=== PATIENT | female | born 1965 | race Caucasian/White ===

== ENCOUNTER 2021-10-17 10:06 | Emergency (ER) | payer MEDICARE, BC ==
[~2021-10-17] VITALS: Ht 165.1 cm; Wt 69.9 kg
[~2021-10-17 10:06] MED LIST: AMLODIPINE BESYL5 MG PO; METOPROLOL SUC100 MG PO; OMEPRAZOLE20 MG PO; RENA-VITE RX T1 EACH PO; SODIUM BICARBO650 MG PO; SYMBICORT 80-10.2 GM INH; TYLENOL WITH C1 EACH PO; VENTOLIN HFA18 GM INH
[2021-10-17] MEDS ORDERED: CEPHALEXIN500 MG PO (11:54)
[2021-10-17] MEDS ORDERED: TACROLIMUS1 MG PO (11:55)
[2021-10-17] MEDS ORDERED: CARVEDILOL3.125 MG PO (11:56)
[2021-10-17] MEDS ORDERED: NIFEDIPINE ER30 MG PO (11:56)
[2021-10-17] MEDS ORDERED: PREDNISONE5 MG PO (11:56)
[2021-10-17] MEDS ORDERED: CELLCEPT500 MG PO (11:57)
== END 2021-10-17 15:54 | disposition short-term general hospital (02) ==
LOC: ED 10:06
DX: M65.9 Synovitis and tenosynovitis, unspecified (principal); Z88.5 Allergy status to narcotic agent; Z88.8 Allergy status to other drugs, medicaments and biological substances; Z79.899 Other long term (current) drug therapy; Z79.52 Long term (current) use of systemic steroids; Z20.822 Contact with and (suspected) exposure to COVID-19
CPT/HCPCS: 36415; 73140; 80048; 85025; 86140; 99284-25; C9803; U0003

== ENCOUNTER 2022-05-31 10:42 | Emergency (ER) | payer MEDICARE, BC ==
[~2022-05-31] VITALS: Ht 165.1 cm; Wt 84.7 kg
[~2022-05-31 10:42] MED LIST changes: +CARVEDILOL3.125 MG PO; +CELLCEPT500 MG PO; +CEPHALEXIN500 MG PO; +NIFEDIPINE ER30 MG PO; +PREDNISONE5 MG PO; +TACROLIMUS1 MG PO
[2022-05-31] MEDS ORDERED: AZATHIOPRINE50 MG PO (11:58)
[2022-05-31] MEDS ORDERED: ONDANSETRON HCL4 MG PO (11:58)
[2022-05-31] MEDS ORDERED: MAGNESIUM OXID400 M1 PO (11:59)
[2022-05-31] MEDS ORDERED: CYCLOSPORINE25 MG PO (12:03)
[2022-05-31] MEDS ORDERED: CIPRO250 MG PO (15:55)
== END 2022-05-31 16:40 | disposition home or self-care (01) ==
LOC: ED 10:42
DX: N39.0 Urinary tract infection, site not specified (principal); Z20.822 Contact with and (suspected) exposure to COVID-19; Z88.5 Allergy status to narcotic agent; Z88.8 Allergy status to other drugs, medicaments and biological substances; Z91.048 Other nonmedicinal substance allergy status; Z79.52 Long term (current) use of systemic steroids
CPT/HCPCS: 36415; 71045; 80048; 81001; 85025; 87088; 87186; 87502; 99283-25; C9803; J7030; U0003

== ENCOUNTER 2024-09-15 12:37 | Observation (INO) | payer BC ==
[~2024-09-15] VITALS: Ht 165.1 cm; Wt 95.3 kg
[~2024-09-15 12:37] MED LIST changes: +AZATHIOPRINE50 MG PO; +CIPRO250 MG PO; +CYCLOSPORINE25 MG PO; +MAGNESIUM OXID400 M1 PO; +ONDANSETRON HCL4 MG PO
[2024-09-15] MEDS ORDERED: CINACALCET HCL30 MG PO (12:50)
[2024-09-15] MEDS ORDERED: SODIUM CHLORIDE 0.9% 1,000 ML IV ONE (13:00)
[2024-09-15 13:05] LABS: PH, VENOUS 7.455 (7.31-7.41)
[2024-09-15 13:10] LABS: BASOPHILS 0.2 % (0-2); EOSINOPHILS 0.3 % (0-6); HEMATOCRIT 37.1 % (35.0-50.0); HEMOGLOBIN 12.5 g/dL (12.0-18.0); LYMPHOCYTES 5.3 % (24-44); MCH 31.3 (27-36); MCHC 33.6 g/dl (30-36); MCV 93.2 fl (81-99); MONOCYTES 6.7 % (0-12); NEUTROPHILS 87.5 % (39-80); PLATELET COUNT 183 K/uL (140-440); RBC 3.97 M/ul (4.3-5.7); RDW 15.1 (10.5-15.0)
[2024-09-15 13:21] LABS: ALBUMIN/GLOBULIN RATIO 0.67 (1.1-2.4); ANION GAP 17.5 (7-21); BILIRUBIN, TOTAL 2.1 ng/dL (0.2-1.0); BUN/CREATININE RATIO 14.28 (6.0-28.6); CALCIUM 9.6 mg/dL (8.5-10.1); CREATININE, SERUM 1.47 mg/dL (0.55-1.02); POTASSIUM 4.5 mmol/L (3.5-5.1); PROTEIN, TOTAL 7.5 g/dL (6.4-8.2)
--- NOTE | 2024-09-15 13:39 | EKG ---
[facility] [address] [place], [place] [address] Signed Normal sinus rhythm Normal ECG When compared with ECG of 23-APR-2016 14:32, No significant change was found Confirmed by Farzad Rivera MD ([id number]) on 09/15/2024 1:38:52 PM Electronically Signed By: FARZAD RIVERA MD 09/15/24 1339 PATIENT NAME: REGINE GRANGER [place] Electrocardiogram DATE OF : 65 PHYSICIAN: FARZAD RIVERA MD REPORT #: [id number] REPORT IS CONFIDENTIAL AND NOT TO BE RELEASED WITHOUT AUTHORIZATION
[2024-09-15] MEDS ORDERED: SODIUM CHLORIDE 0.9% 1,000 ML IV PRN (14:45)
[2024-09-15] MEDS ORDERED: Insulin Regular, Human 100 UNIT/ML ML IV ONE (14:45)
[2024-09-15] MEDS ORDERED: GLUCAGON,HUMAN RECOMBINANT 1 MG/ML VIAL SUB-Q PRN (16:00)
[2024-09-15] MEDS ORDERED: DEXTROSE 5% 1,000 ML IV PRN (16:00)
[2024-09-15] MEDS ORDERED: ondansetron HCL 4 MG/2 ML VIAL IV PRN (16:00)
[2024-09-15] MEDS ORDERED: IBLOOD GLUCOSE TEST STRIP 1 EA TEST XX PRN (16:00)
[2024-09-15] MEDS ORDERED: DEXTROSE 50% 50 ML SYR IV PRN ×2 (16:00)
[2024-09-15] MEDS ORDERED: LACTATED RINGER'S 1,000 ML IV SCH (16:00)
[2024-09-15] MEDS ORDERED: ACETAMINOPHEN 325 MG TAB PO PRN (16:00)
[2024-09-15] MEDS ORDERED: IBLOOD GLUCOSE TEST STRIP 1 EA TEST VI SCH (17:00)
[2024-09-15] MEDS ORDERED: INSULIN LISPRO 100 UNIT/ML ML SUB-Q SCH (17:00)
--- NOTE | 2024-09-15 17:10 | NUR ---
PATIENT ARRIVED TO THE FLOOR. REPORT RECEIVED FROM YANELI BAUTISTA FROM THE ER. PATIENT THEN PIVOT TRANSFERRED TO THE BED INDEPENDENTLY.
[2024-09-15 17:14] VITALS: BP 149/55
--- NOTE | 2024-09-15 17:20 | NUR ---
PATIENT SPEAKING WITH REAL ESTATE SALES AGENT AND POWER SEWING MACHINE OPERATOR AT THIS TIME.
[2024-09-15 18:07] VITALS: BP 149/55
--- NOTE | 2024-09-15 18:08 | NUR ---
DR THAO NOTIFIED OF PT'S BLOOD GLUCOSE OF 407. DR THAO STATED TO GIVE INSULIN PER S/S ORDERED.
--- NOTE | 2024-09-15 18:10 | NUR ---
PATIENT IS SITTING UPRIGHT IN BED AND EATING DINNER. PATIENT WITH HER AT BEDSIDE. ADMISSION COMPLETE. FULL ASSESSMENT COMPLETE AND DOCUMENTED IN THE CHART. PATIENT IS ALERT AND ORIENTED TIMES FOUR. PATIENT WITH A MURMUR HEARD ON AUSCULTATION. RADIAL AND PEDAL PULSES ARE STRONG BILATERALLY. CAPILLARY REFILL IN THE UPPER AND LOWER EXTREMITIES IS LESS THAN 3 SECONDS BILATERALLY. SENSATION INTACT WITH NO COMPLAINTS OF NUMBNESS OR TINGLING. NO EDEMA NOTED. PATIENT IS ON ROOM AIR. LUNG SOUNDS ARE CLEAR IN THE UPPER LOBES AND DIMINISHED IN THE BASES BILATERALLY. PATIENT WITH A 20 GAUGE IN THE RIGHT WRIST. IV FLUSHED WITH 10 ML NORMAL SALINE. LR IS INFUSING AT 125 ML/HR. IV DRESSING IS CLEAN, DRY, AND INTACT. PATIENT IS ON A 60 GRAM CARB DIET. BOWEL TONES ARE ACTIVE IN ALL FOUR QUADRANTS. LAST BM WAS 09/14/24. NO COMPLAINTS OF NAUSEA. SKIN INTACT. SKIN IS VERY DRY. PATIENT WITH NO COMPLAINTS OF PAIN. PATIENT STATED NO FURTHER NEEDS AT THIS TIME. CALL LIGHT AND PERSONAL BELONGINGS ARE WITHIN REACH.
--- NOTE | 2024-09-15 18:41 | NUR ---
PATIENT EDUCATED ON THE 11 UNITS OF INSULIN. PATIENT EDUCATED ON THE SIGNS AND SYMPTOMS OF HYPOGLYCEMIA. PATIENT EXPRESSED UNDERSTANDING. EDUCATION PACKET ON HYPOGLYCEMIA IS AT THE BEDSIDE. INTAKE AND OUTPUT VALUES ARE DOCUMENTED IN THE CHART. PATIENT WITH TWO FAMILY MEMBERS IN THE ROOM. PATIENT AND FAMILY STATED NO FURTHER NEEDS AT THIS TIME. CALL LIGHT AND PERSONAL BELONGINGS ARE WITHIN REACH.
--- NOTE | 2024-09-15 19:28 | NUR ---
RECEIVED REPORT FROM YANELI LINDSEY. PT RESTING IN BED, PLAYING ON PHONE. DENIES NEEDS AT THIS TIME.
[2024-09-15 19:57] VITALS: BP 150/62
--- NOTE | 2024-09-15 20:00 | NUR ---
PT ASSISTED TO BR, SBA FOR IV LINE HELP. BACK TO BED. VSS. HS MEDS ADMINISTERED PER EMAR. DENIES PAIN. ORIENTED X 4. LSC DIM. HRR. BTA. LBM YESTERDAY. REPORTS URINARY FREQUENCY. UO CLOUDY YELLOW, UA SENT TO LAB. LW IV W/ LR INFUSING. HERBIE AV FISTULA (+) THRILL AND BRUIT. BG 375, SLIDING SCALE AND LANTUS ADMINISTERED. CALL LIGHT WITHIN REACH.
[2024-09-15 20:23] LABS: BILIRUBIN, URINE NEGATIVE (negative); BLOOD/HGB, URINE MODERATE (Negative); KETONE, URINE SMALL (Negative); LEUK ESTERASE, URINE SMALL (negative); NITRITE, URINE POSITIVE (negative); PH, URINE 5.5 (5-7)
[2024-09-15 20:28] LABS: BACTERIA, URINE 3+ /hpf (negative); CASTS, URINE NONE SEEN \\lpf; COLLECTION TYPE, URINE CLEAN CATCH; CRYSTALS, URINE NONE SEEN (0-1+); EPITHELIAL CELLS, URINE SQUAMOUS 1+ /lpf (0-1+); REFLEX CULTURE, URINE Yes (No); WHITE BLOOD CELLS, URINE >50 /HPF (0-5)
[2024-09-15] MEDS ORDERED: MELATONIN 3 MG TAB PO PRN (21:00)
[2024-09-15] MEDS ORDERED: INSULIN GLARGINE-YFGN 100 UNIT/ML ML SUB-Q SCH (21:00)
[2024-09-15 21:07] VITALS: BP 150/62
--- NOTE | 2024-09-15 21:51 | NUR ---
DR. THAO NOTIFIED OF UA REFLEXED TO CULTURE AND BG 375 AT HS. MD IN CHART NOW, WILL PUT IN NEW ORDERS FOR ATB.
[2024-09-15] MEDS ORDERED: CEFTRIAXONE/SODIUM CHLORIDE 2 GM/100 ML PIGGYBACK IV SCH (21:57)
--- NOTE | 2024-09-15 22:30 | NUR ---
PT AWAKE, SLEEPING BETWEEN CARE. IV ATB INITIATED PER EMAR. DENIES ANY OTHER NEEDS.
[2024-09-16] VITALS (15 sets, daily range): BP systolic 119–186; BP diastolic 48–86
--- NOTE | 2024-09-16 00:31 | NUR ---
PT SLEEPING SOUNDLY, APPEARS COMFORTABLE.
--- NOTE | 2024-09-16 01:57 | NUR ---
PT CALLED FOR ASSIST TO BR. AMBULATED W/ SBA, GAIT STEADY. UO DARK YELLOW AND CLOUDY. DENIES DYSURIA. NEW BAG LR HUNG. VS OBTAINED, B/P ELEVATES SITTING EOB, B/P RECHECKED LAYING DOWN AND IS IMPROVED. FRESH ICE WATER PROVIDED. CALL LIGHT WITHIN REACH.
--- NOTE | 2024-09-16 04:36 | NUR ---
PT REPORTED TO PLASTICS ENGINEER NOT FEELING WELL AND BEING SHAKY WHEN UP TO BR. PT ALSO REPORTS HEADACHE. BG CHECKED, 256. PRN TYLENOL ADMINISTERED FOR HEADACHE 03/19. NO FURTHER NEEDS AT THIS TIME. CALL LIGHT WITHIN REACH.
[2024-09-16 05:27] LABS: BASOPHILS 0.3 % (0-2); EOSINOPHILS 0.6 % (0-6); HEMATOCRIT 31.1 % (35.0-50.0); HEMOGLOBIN 10.6 g/dL (12.0-18.0); LYMPHOCYTES 6.6 % (24-44); MCH 31.7 (27-36); MCHC 34.1 g/dl (30-36); MCV 92.9 fl (81-99); MONOCYTES 8.5 % (0-12); PLATELET COUNT 160 K/uL (140-440); RBC 3.34 M/ul (4.3-5.7); RDW 15.1 (10.5-15.0)
[2024-09-16 05:43] LABS: ALBUMIN 2.4 g/dL (3.4-5.0); ALBUMIN/GLOBULIN RATIO 0.65 (1.1-2.4); BUN/CREATININE RATIO 11.11 (6.0-28.6); CALCIUM 9.1 mg/dL (8.5-10.1); CREATININE, SERUM 1.08 mg/dL (0.55-1.02); MAGNESIUM 1.5 mg/dL (1.8-2.4); PHOSPHORUS, INORGANIC 2.2 mg/dL (2.5-4.9); PROTEIN, TOTAL 6.1 g/dL (6.4-8.2)
--- NOTE | 2024-09-16 05:52 | NUR ---
CHANGE BOOTH ATTENDANT OBTAINED VITALS AND I&O. PT STATES NO FURTHER NEEDS AT THIS TIME. CALL LIGHT WITHIN REACH.
--- NOTE | 2024-09-16 07:06 | NUR ---
REPORT RECEIVED FROM DOOR TO DOOR SELLING DISTRIBUTOR RN LIANE. PATIENT IS LYING IN BED WITH EYES CLOSED AND RESPIRATIONS ARE EVEN AND UNLABORED. CALL LIGHT AND PERSONAL BELONGINGS ARE WITHIN REACH.
--- NOTE | 2024-09-16 07:29 | NUR ---
DR THAO AT RN STATION, MADE AWARE AM SODIUM INCREASED FROM 126 TO 133-NO NEW ORDERS RECEIVED AT THIS TIME.
[2024-09-16] MEDS ORDERED: SOD PHOS MONO/SOD PHOS DIBAS 250 MG TAB PO ONE (08:00)
[2024-09-16] MEDS ORDERED: MAGNESIUM SULFATE 2 GM/50 ML BAG IV ONE (08:00)
--- NOTE | 2024-09-16 08:00 | NUR ---
0800 AND 0900 MEDICATIONS ADMINISTERED PER THE EMAR. PATIENT EDUCATED ON HOW TO ADMINISTER INSULIN. PATIENT ADMINISTERED DOSE OF INSULIN INDEPENDENTLY THIS MORNING. FULL ASSESSMENT COMPLETE AND DOCUMENTED IN THE CHART. PATIENT IS ALERT AND ORIENTED TIMES FOUR. CARDIAC WITH NORMAL S1 AND S2. MD NOTIFIED OF THIS RN AUSCULTATING MURMUR ON ADMISSION AND NOW HEARING NORMAL S1 AND S2. NO NEW ORDERS AT THIS TIME. RADIAL AND PEDAL PULSES ARE STRONG BILATERALLY. CAPILLARY REFILL IN THE UPPER AND LOWER EXTREMITIES IS LESS THAN 3 SECONDS. SENSATION INTACT WITH NO COMPLAINTS OF NUMBNESS OR TINGLING. PATIENT IS ON ROOM AIR AND LUNG SOUNDS ARE CLEAR IN THE UPPER LOBES AND DIMINISHED IN THE BASES. IV IN THE RIGHT HAND.WRIST FLUSHED WITH 10 ML NORMAL SALINE. IV DRESSING IS CLEAN, DRY, AND INTACT. LR IS INFUSING AT 125 ML/HR. PATIENT IS ON A 60 GRAM CARB DIET. BOWEL TONES ARE ACTIVE IN ALL FOUR QUADRANTS. PATIENT LAST BM WAS 09/14/24. PATIENT WITH NO COMPLAINTS OF PAIN OR NAUSEA. PATIENT STATED NO FURTHER NEEDS AT THIS TIME. CALL LIGHT AND PERSONAL BELONGINGS ARE WITHIN REACH.
--- NOTE | 2024-09-16 08:17 | NUR ---
PT CALL LIGHT ON THIS MORNING, PT UP TO BATHROOM WITH JUST ASSISTANCE WITH IV POLE. PT AMBULATED BACK TO BED. IV PUMP PLUGGED BACK IN. PT DENIES ANY FURTHER NEEDS AT THIS TIME. CALL LIGTH WITHIN REACH, LEFT TO WATCH TV.
[2024-09-16] MEDS ORDERED: ENOXAPARIN SODIUM 40 MG/0.4 ML SYR SUB-Q SCH (09:00)
--- NOTE | 2024-09-16 09:00 | NUR ---
INTO SEE PATIENT. PERSONAL INFORMATION REVIEWED. PATIENT LIVES IN A DUPLEX 3 STEPS. DENIES ANY DIFFCULTY DOING STEPS AND DENIES DIFFCULTY GETTING OUT OF BED. SHE DRIVES HERSELF. WILL DRIVE HER HOME AT DISCHARGE. NO DME AT HOME. DENIES DIFFCULTY PAYING UTILITIES OR OBTAINING FOOD. DENIES ANY NEED FROM CM AT THIS TIME.
--- NOTE | 2024-09-16 09:11 | NUR ---
CALLED [facility] TO TRY TO GET HER INTO [place]. THEY WILL CALL BACK THURSDAY IF THEY ARE ABLE TO TAKE HER. DR. BLAIR WILL BE ABLE TO SEE PATIENT 10/06/24 IS THE EARLIEST. WILL CALL THE PATIENT IF SOMEONE CANCELS.
--- NOTE | 2024-09-16 09:21 | NUR ---
UR CLINICAL REVIEW: [place], MEETS OBS CRITERIA FOR DIABETES [facility] PPO OBS 09/15/2024 @ 1601 ORDER MATCHES REG AUTHORIZED 09/15/2024-09/20/2024. WILL SEND CLINICALS TODAY PLAN TO DC HOME WHEN MEDICALLY STABLE 09/17/2024
[2024-09-16] MEDS ORDERED: SOD PHOS MONO/SOD PHOS DIBAS 250 MG TAB ONE (10:17)
[2024-09-16] MEDS ORDERED: CYCLOSPORINE M100 MG PO (10:40)
--- NOTE | 2024-09-16 11:23 | NUR ---
PATIENT IS SITTING UPRIGHT IN BED AND WATCHING TV. PATIENT STATED NO NEEDS AT THIS TIME. CALL LIGHT AND PERSONAL BELONGINGS ARE WITHIN REACH.
--- NOTE | 2024-09-16 11:38 | NUR ---
MED REC COMPLETE
[2024-09-16] MEDS ORDERED: PHARMACY RENAL DOSE ADJUSTMENT 1 DOSE MISC PO SCH (12:00)
--- NOTE | 2024-09-16 13:17 | NUR ---
AND THIS RN ROUNDED WITH THE PATIENT AT THIS TIME. PATIENT IS SITTING IN THE CHAIR AT BEDSIDE. RN EMPTIED THE HAT. LUNCH TRAY REMOVED. PATIENT AND STATED NO FURTHER NEEDS AT THIS TIME. CALL LIGHT AND PERSONAL BELONGINGS ARE WITHIN REACH.
--- NOTE | 2024-09-16 14:06 | NUR ---
PATIENT IS LYING IN BED WITH THE HOB ELEVATED. PATIENT IS SITTING IN THE CHAIR AT BEDSIDE. ANOTHER GUEST IS IN THE ROOM, THIS RN PROVIDED A CHAIR THE PATIENT VISITOR WAS SITTING IN A SHOWER CHAIR. VITAL SIGNS TAKEN AND INTAKE AND OUTPUT VALUES. PATIENT RATED NO PAIN AT THIS TIME. IV SITE FLUSHED WITH 10 ML NORMAL SALINE. IV DRESSING IS CLEAN, DRY, AND INTACT. LR IS INFUSING AT 125 ML/HR. PATIENT AND FAMILY STATED NO FURTHER NEEDS AT THIS TIME. CALL LIGHT AND PERSONAL BELONGINGS ARE WITHIN REACH.
[2024-09-16] MEDS ORDERED: NIFEdipine XL 30 MG TAB PO SCH (14:47)
[2024-09-16] MEDS ORDERED: predniSONE 5 MG TAB PO SCH (14:47)
--- NOTE | 2024-09-16 14:47 | NUR ---
MD NOTIFIED OF RESTARTING HOME MEDICATIONS. MD TO PUT IN ORDERS AT THIS TIME.
--- NOTE | 2024-09-16 15:09 | NUR ---
PATIENT IS LYING IN BED WITH EYES CLOSED AND RESPIRATIONS ARE EVEN AND UNLABORED. TV IS ON. CALL LIGHT AND PERSONAL BELONGINGS ARE WITHIN REACH.
[2024-09-16] MEDS ORDERED: cycloSPORINE 100 MG CAP PO SCH (15:30)
[2024-09-16] MEDS ORDERED: CINACALCET HCL 30 MG TAB PO SCH (15:30)
--- NOTE | 2024-09-16 16:07 | NUR ---
PATIENT IS SITTING UPRIGHT IN THE BED WITH EYES OPEN AND WATCHING TV. PATIENT STATED NO FURTHER NEEDS AT THIS TIME. CALL LIGHT AND PERSONAL BELONGINGS ARE WITHIN REACH.
--- NOTE | 2024-09-16 16:25 | NUR ---
Patient is sitting up in bed with visitors in the room. 1PA to bathroom. Returned to bed once done.
--- NOTE | 2024-09-16 16:58 | NUR ---
Blood sugar check was done on home glucometer and hospital glucometer to compare points. Home was 215 and hospital was 243. Hospital glucomter reading was recorded in eMAR and reading differences reported to YANELI Jose.
--- NOTE | 2024-09-16 17:34 | NUR ---
MD NOTIFIED OF MOST RECENT BLOOD PRESSURE. MD STATED TO STOP THE MAINTENANCE FLUIDS. MD STATED HE WOULD PUT IN PRN ORDER FOR HYDRALAZINE AND TO GIVE DOSE NOW. MD WITH NO FURTHER ORDERS. CALL ENDED.
[2024-09-16] MEDS ORDERED: hydrALAZINE HCL 20 MG/ML VIAL IV PRN (17:45)
--- NOTE | 2024-09-16 18:15 | NUR ---
PATIENT IS LYING IN BED WITH HOB. PATIENT IS SITTING IN THE CHAIR AT BEDSIDE. HAT IN THE TOILET EMPTIED AT THIS TIME. PATIENT REQUESSTS TO KEEP HER DINNER TRAY. PATIENT STATED NO FURTHER NEEDS AT THIS TIME. CALL LIGHT AND PERSONAL BELONGINGS ARE WITHIN REACH.
--- NOTE | 2024-09-16 19:20 | NUR ---
REPORT RECEIVED FROM ROSALIA GROVES. pt RESTING IN THE BED. BOARD UPDATED. CALL LIGHT WITHIN REACH. pt DENIES ANY NEEDS AT THIS TIME.
[2024-09-16] MEDS ORDERED: azaTHIOprine 50 MG TAB PO SCH (21:00)
--- NOTE | 2024-09-16 21:16 | NUR ---
ASSESSMENT DONE. BG CHECKED WITH A RESULTS OF 248. SS INSULIN. pt RESTING IN BED. pt DENIES ANY OTHER NEEDS AT THIS TIME. CALL LIGHT WITHIN REACH. SS MEDS ADMINISTERED.
--- NOTE | 2024-09-16 23:57 | NUR ---
pt RESTING IN THE BED WITH EYES CLOSED. RR EVEN AND UNLABORED. CALL LIGHT WITHIN REACH.
--- NOTE | 2024-09-17 01:49 | NUR ---
pt RESTING IN THE BED WITH EYES CLOSED. RR EVEN AND UNLABORED. CALL LIGHT WITHIN REACH.
--- NOTE | 2024-09-17 03:42 | NUR ---
pt RESTING IN THE BED WITH EYES CLOSED. RR EVEN AND UNLABORED. CALL LIGHT WITHIN REACH.
[2024-09-17 05:13] VITALS: BP 139/56
--- NOTE | 2024-09-17 05:15 | NUR ---
DATABASE ADMINISTRATION ASSOCIATE OBTAINED VITALS AND I&O. ICE WATER REFILLED. PT STATES NO FURTHER NEEDS AT THIS TIME. CALL LIGHT WITHIN REACH.
[2024-09-17 05:40] LABS: BASOPHILS 0.3 % (0-2); EOSINOPHILS 0.7 % (0-6); HEMATOCRIT 32.5 % (35.0-50.0); HEMOGLOBIN 11.1 g/dL (12.0-18.0); LYMPHOCYTES 10.7 % (24-44); MCH 31.7 (27-36); MCHC 34.2 g/dl (30-36); MCV 92.5 fl (81-99); MONOCYTES 8.2 % (0-12); NEUTROPHILS 80.1 % (39-80); PLATELET COUNT 177 K/uL (140-440); RBC 3.51 M/ul (4.3-5.7); RDW 15.4 (10.5-15.0)
[2024-09-17 05:53] LABS: MAGNESIUM 1.7 mg/dL (1.8-2.4)
[2024-09-17 05:56] LABS: ALBUMIN 2.3 g/dL (3.4-5.0); ALBUMIN/GLOBULIN RATIO 0.58 (1.1-2.4); BUN/CREATININE RATIO 10.57 (6.0-28.6); CALCIUM 9.2 mg/dL (8.5-10.1); CREATININE, SERUM 1.04 mg/dL (0.55-1.02); PROTEIN, TOTAL 6.3 g/dL (6.4-8.2)
--- NOTE | 2024-09-17 06:15 | NUR ---
ASSESSMENT DONE. pt RESTING IN THE BED. NO OTHER NEEDS AT THIS TIME. CALL LIGHT WITHIN REACH.
--- NOTE | 2024-09-17 07:05 | NUR ---
REPORT RECEIVED FROM BALLET COMPANY MEMBER RN ANTON. PATIENT IS LYING IN BED WITH HOB ELEVATED. HAT IN THE TOILET EMPTIED. PATIENT STATED NO NEEDS AT THIS TIME. CALL LIGHT AND PERSONAL BELONGINGS ARE WITHIN REACH.
--- NOTE | 2024-09-17 08:25 | NUR ---
0800 AND 0900 MEDICATIONS ADMINISTERED PER THE EMAR. PATIENT ADMINISTERED 0800 DOSE OF INSULIN INDEPENDENTLY. PATIENT DID WELL. FRESH CUP OF ICE WATER PROVIDED. PATIENT STATED NO FURTHER NEEDS AT THIS TIME. PATIENT IS INDEPENDENT IN THE ROOM. CALL LIGHT AND PERSONAL BELONGINGS ARE WITHIN REACH.
[2024-09-17] MEDS ORDERED: MAGNESIUM CHLORIDE 64 MG TABCR PO ONE (09:00)
[2024-09-17 09:20] VITALS: BP 144/57
--- NOTE | 2024-09-17 09:43 | NUR ---
Call light has been placed within reach, no request from patient at this time.
--- NOTE | 2024-09-17 09:45 | NUR ---
PATIENT IS SITTING IN BED WITH THE HOB ELEVATED. FULL ASSESSMENT COMPLETE AND DOCUMENTED IN THE CHART. PATIENT IS ALERT AND ORIENTED TIMES FOUR. IV SITE FLUSHED WITH 10 ML NORMAL SALINE AND IS SALINE LOCKED. IV DRESSING IS CLEAN, DRY, AND INTACT. PATIENT IS ON ROOM AIR. LUNG SOUNDS ARE CLEAR IN THE UPPER LOBES AND DIMINISHED IN THE BASES BILATERALLY. PATIENT IS ON A 60 GRAM CARB DIET. BOWEL TONES ARE ACTIVE IN ALL FOUR QUADRANTS. LAST BM WAS 09/16/24. RADIAL AND PEDAL PULSES ARE STRONG BILATERALLY. CAPILLARY REFILL IN THE UPPER AND LOWER EXTREMITIES IS LESS THAN 3 SECONDS. ON INITIAL AUSCULTATION THIS RN AND YANELI HICKS HEARD A MURMUR. THEN WHEN LISTENING FOR A SECOND BOTH RN AUSCULTATED NORMAL S1 AND S2. SENSATION INTACT WITH NO COMPLAINTS OF NUMBNESS OR TINGLING. PATIENT WITH NO COMPLAINTS OF PAIN. PATIENT IS INDEPENDENT IN THE ROOM. PATIENT PROVIDED WARM WASH CLOTH. PATIENT STATED NO FURTHER NEEDS AT THIS TIME. CALL LIGHT AND PERSONAL BELONGINGS ARE WITHIN REACH.
[2024-09-17 10:13] VITALS: BP 144/57
--- NOTE | 2024-09-17 10:33 | NUR ---
PATIENT IS SITTING UPRIGHT IN BED AND LOOKING ON HER. RN NOTIFIED OF THIS RN AND YANELI HICKS AUSCULTATED A MURMUR. CALL LIGHT AND PERSONAL BELONGINGS ARE WITHIN REACH.
--- NOTE | 2024-09-17 11:15 | NUR ---
PATIENT IS LYING IN BED WITH HOB ELEVATED. URINAL DUMPED OF CONCENTRATED URINE. PATIENT WITH THREE VISITORS IN THE ROOM AT THIS TIME. PATIENT STATED NO FURTHER NEEDS. CALL LIGHT AND PERSONAL BELONGINGS ARE WITHIN REACH.
--- NOTE | 2024-09-17 12:10 | NUR ---
1200 INSULIN ADMINISTERED PER THE EMAR. PATIENT SELF ADMINISTERED INSULIN DOSE. PATIENT TOLERATED WELL. 3 VISITORS ARE IN THE ROOM AT THIS TIME. PATIENT STATED NO FURTHER NEEDS. CALL LIGHT AND PERSONAL BELONGINGS ARE WITHIN REACH.
[2024-09-17 13:08] VITALS: BP 159/63
[2024-09-17 13:10] VITALS: BP 159/63
--- NOTE | 2024-09-17 14:00 | NUR ---
Patient had no request at this time, Family is at patient bedside. Patient to her own blood sugar check. We went over the proper methods when taking her blood glucose. Patient did well. Call light has been placed within reach, bed is lowered
--- NOTE | 2024-09-17 14:27 | NUR ---
PATIENT IS IN BED WITH HOB ELEVATED. PATIENT IS SITTING IN THE CHAIR AT BEDSIDE. ROUNDING WITH THE PATIENT AT THIS TIME. CONFIRMED HEARING A MURMUR. PATIENT WITH NO COMPLAINTS OF PAIN. IV SITE FLUSHED WITH 10 ML NORMAL SALINE AND IS SALINE LOCKED. IV DRESSING IS CLEAN, DRY, AND INTACT. HAT IN THE TOILET EMPTIED AT THIS TIME. PATIENT STATED NO FURTHER NEEDS AT THIS TIME. CALL LIGHT AND PERSONAL BELONGINGS ARE WITHIN REACH.
[2024-09-17] MEDS ORDERED: CEFDINIR300 MG PO (14:37)
[2024-09-17] MEDS ORDERED: INSULIN GL100 UNIT/1 SUB-Q (14:38)
[2024-09-17] MEDS ORDERED: ADMELOG100 UNIT/1 SUB-Q (14:38)
== END 2024-09-17 16:05 | disposition home or self-care (01) ==
LOC: ED 12:37 → MS 12:38
PROVIDERS: Emergency Medicine; ADMIT Family Medicine; ATTEND Family Medicine
DX: E11.65 Type 2 diabetes mellitus with hyperglycemia (principal); N39.0 Urinary tract infection, site not specified; Z79.4 Long term (current) use of insulin; Z79.899 Other long term (current) drug therapy; Z94.0 Kidney transplant status; Z88.8 Allergy status to other drugs, medicaments and biological substances
CPT/HCPCS: 36415; 80053; 81001; 82010; 82803; 83036; 83735; 84100; 85025; 87077; 87088; 87186; 93005; 93010; 96361; 96365; 96372; 96374; 96375; 99285-25; A9270; G0378; J0360; J0696; J1650; J1815; J3475; J7030; J7121; J7500; J7512